=== PATIENT | male | born 1945 | race Caucasian/White ===

== ENCOUNTER 2017-07-27 21:16 | Emergency (ER) | payer MEDICARE ==
[~2017-07-27] VITALS: Ht 175.3 cm; Wt 81.0 kg
[2017-07-27 21:25] VITALS: BP 123/62; PULSE 68; RESP 16; TEMP 97.9
[2017-07-27] MEDS ORDERED: ROSU5 PO (21:31)
[2017-07-27] MEDS ORDERED: ASPI-516 CHEW (21:31)
--- NOTE | 2017-07-27 21:58 | PD ---
HPI Chief Complaint: Syncope/Near-Syncope Time Seen by Provider: 21:39 Travel History International Travel<30 days: No Contact w/Intl Traveler<30days: No Traveled to known affect area: No History of Present Illness HPI 71yo M with PMH of CAD s/p bypass presents to the ED with c/o possible syncope. Pt was at dinner and had total of 4 cocktails and normally do not drink. Said he felt lightheaded and his said he passed out for a second. He said he was sitting in a chair and woke up still sitting in a chair and did not fall. Pt is AAOx3 and denies any complaints. Denies any dizziness, chest pain , sob, n/v, abdominal pain, focal weakness or numbness, headache, visual changes. PFSH Past Medical History Cardiovascular Problems: Yes (bypass 27 years ago) Coronary Artery Disease: Yes Diminished Hearing: No Tetanus Vaccination: Never Vaccinated Influenza Vaccination: No Past Surgical History Coronary Artery Bypass Graft: Yes (27 years ago) Social History Alcohol Use: Yes (had 4 rum drinks for dinner) Tobacco Use: No Substance Use: No Allergies-Medications (Allergen,Severity, Reaction): Coded Allergies: No Known Allergies (Unverified , 07/27/17) Reported Meds & Prescriptions Reported Meds & Active Scripts Active Reported Aspirin 81 Mg Chew 81 Mg CHEW DAILY Crestor (Rosuvastatin Calcium) 5 Mg Tab 5 Mg PO DAILY Review of Systems Except as stated in HPI: all other systems reviewed are Neg Physical Exam Narrative GENERAL: 71yo M not in distress. SKIN: Focused skin assessment warm/dry. HEAD: Atraumatic. Normocephalic. EYES: Pupils equal and round at 3mm bilaterally. EOMI. ENT: No nasal bleeding or discharge. Mucous membranes pink and moist. NECK: Trachea midline. No JVD. CARDIOVASCULAR: Regular rate and rhythm. No murmur appreciated. RESPIRATORY: No accessory muscle use. Clear to auscultation. Breath sounds equal bilaterally. GASTROINTESTINAL: Abdomen soft, non-tender, nondistended. No rebound tenderness or guarding. MUSCULOSKELETAL: No obvious deformities. No clubbing. No cyanosis. No edema. NEUROLOGICAL: Awake and alert. No obvious cranial nerve deficits. Motor grossly within normal limits. Normal speech. PSYCHIATRIC: Appropriate mood and affect; insight and judgment normal. Data Data Last Documented VS Vital Signs Date Time Temp Pulse Resp B/P (MAP) Pulse Ox O2 Delivery O2 Flow Rate FiO2 07/28/17 00:29 07/27/17 22:03 79 14 84 92 07/27/17 21:25 97.9 Orders Orders Complete Blood Count With Diff (07/27/17 21:46) Comprehensive Metabolic Panel (07/27/17 21:46) Magnesium (Mg) (07/27/17 21:46) Troponin I (07/27/17 21:46) Act Partial Throm Time (Ptt) (07/27/17 21:46) Prothrombin Time / Inr (Pt) (07/27/17 21:46) Blood Glucose (07/27/17 21:46) Orthostatic Vital Signs (07/27/17 21:46) Chest, Single Ap (07/27/17 ) Urinalysis - C+S If Indicated (07/27/17 21:59) Ct Brain W/O Iv Contrast(Rout) (07/27/17 ) Ed Discharge Order (07/28/17 00:26) Electrocardiogram (07/28/17 21:29) Labs Laboratory Tests Test 07/27/17 21:50 07/27/17 22:20 White Blood Count 8.5 TH/MM3 Red Blood Count 5.28 MIL/MM3 Hemoglobin 16.5 GM/DL Hematocrit 49.2 % Mean Corpuscular Volume 93.2 FL Mean Corpuscular Hemoglobin 31.2 PG Mean Corpuscular Hemoglobin Concent 33.5 % Red Cell Distribution Width 14.0 % Platelet Count 188 TH/MM3 Mean Platelet Volume 9.1 FL Neutrophils (%) (Auto) 58.1 % Lymphocytes (%) (Auto) 33.7 % Monocytes (%) (Auto) 6.0 % Eosinophils (%) (Auto) 1.6 % Basophils (%) (Auto) 0.6 % Neutrophils # (Auto) 4.9 TH/MM3 Lymphocytes # (Auto) 2.9 TH/MM3 Monocytes # (Auto) 0.5 TH/MM3 Eosinophils # (Auto) 0.1 TH/MM3 Basophils # (Auto) 0.1 TH/MM3 CBC Comment DIFF FINAL Differential Comment Prothrombin Time 11.6 SEC Prothromb Time International Ratio 1.0 RATIO Activated Partial Thromboplast Time 25.7 SEC Blood Urea Nitrogen 20 MG/DL Creatinine 0.98 MG/DL Random Glucose 78 MG/DL Total Protein 6.3 GM/DL Albumin 3.1 GM/DL Calcium Level 7.7 MG/DL Magnesium Level 2.0 MG/DL Alkaline Phosphatase 57 U/L Aspartate Amino Transf (AST/SGOT) 18 U/L Alanine Aminotransferase (ALT/SGPT) 13 U/L Total Bilirubin 0.3 MG/DL Sodium Level 144 MEQ/L Potassium Level 3.5 MEQ/L Chloride Level 111 MEQ/L Carbon Dioxide Level 21.6 MEQ/L Anion Gap 11 MEQ/L Estimat Glomerular Filtration Rate 75 ML/MIN Troponin I LESS THAN 0.02 NG/ML Urine Color YELLOW Urine Turbidity CLEAR Urine pH 5.5 Urine Specific [place] 1.017 Urine Protein TRACE mg/dL Urine Glucose (UA) NEG mg/dL Urine Ketones NEG mg/dL Urine Occult Blood NEG Urine Nitrite NEG Urine Bilirubin NEG Urine Urobilinogen LESS THAN 2.0 MG/DL Urine Leukocyte Esterase NEG Urine RBC 2 /hpf Urine WBC 1 /hpf Urine Squamous Epithelial Cells <1 /hpf Urine Mucus FEW /lpf Microscopic Urinalysis Comment CULT NOT INDICATED MDM Medical Decision Making Medical Screen Exam Complete: Yes Emergency Medical Condition: Yes Interpretation(s) EKG: NSR 67bpm. +PVC. Q wave III. Differential Diagnosis Vasovagal syncope vs. alcohol intoxication vs. dehydration vs. hypoglycemia vs. arrhythmia Narrative Course 71yo M with syncopal episode while at dinner today. His came later and I got a different history. Said her was staring in space and had his head lean back and was kind of foaming in the mouth for a few minutes. Sounds a bit like seizure so CT brain ordered. No history of seizure. Labs reviewed, no leukocytosis. H/H normal. Troponin negative. UA negative. CXR negative. CT brain negative. I advised admission for work up of possible new onset seizure as well as syncope work up with his cardiac history but pt is refusing. Pt is AAOx3 and not intoxicated and able to make decision to refuse admission. Pt given time to discuss with and still refuses. States he feels fine and wants to follow up as outpatient. Return precautions given. Diagnosis Primary Impression: Syncope Qualified Codes: R55 - Syncope and collapse Referrals: Sylvie Aguilar MD call for appointment Possible seizure. Patient Instructions: General Instructions Departure Forms: Tests/Procedures Additional Instructions: Please follow up with your anchorer as an outpatient. Please follow up neurology clinic for work up of possible seizure. Return to the ED if symptoms worsen. Med/Other Pt SpecificInfo: No Change to Meds Disposition: 01 DISCHARGE HOME Condition: Stable Gabby Hinton DO Jul 27, 2017 21:58
[2017-07-27 22:03] VITALS: BP_SYST 102; BP_SYST 106; BP_SYST 175; BP_DIAS 58; BP_DIAS 70; BP_DIAS 79; RESP 14
--- NOTE | 2017-07-27 22:16 | RADRPT ---
EXAM DATE/TIME: 07/27/2017 22:01 [facility] COMPARISON: No previous studies available for comparison. INDICATIONS : Syncopal episode. MEDICAL HISTORY : Coronary artery disease. SURGICAL HISTORY : CABG. ENCOUNTER: Initial ACUITY: 1 day PAIN SCORE: 0/10 LOCATION: Bilateral chest FINDINGS: Cardiomegaly. Aortic calcification. Sternotomy wires. Clear lungs. CONCLUSION: No acute disease. Tra Saucedo MD on July 27, 2017 at 22:14 Board Certified Radiologist. This report was verified electronically.
[2017-07-27 22:32] LABS: AUTOMATED NEUTROPHIL # 4.9 TH/MM3 (1.8-7.7); BASOPHIL # 0.1 TH/MM3 (0-0.2); BASOPHIL % 0.6 % (0.0-2.0); EOSINOPHIL # 0.1 TH/MM3 (0-0.4); EOSINOPHIL % 1.6 % (0.0-4.0); HEMATOCRIT 49.2 % (39.0-51.0); HEMO FLAGS DIFF FINAL; LYMPH % 33.7 % (9.0-44.0); LYMPHOCYTE # 2.9 TH/MM3 (1.0-4.8); MEAN CELL VOLUME 93.2 FL (80.0-100.0); MEAN CORPUSCULAR HEMOGLOBIN 31.2 PG (27.0-34.0); MEAN CORPUSCULAR HGB CONC 33.5 % (32.0-36.0); NEUT % 58.1 % (16.0-70.0); PLATELET COUNT 188 TH/MM3 (150-450); RED BLOOD COUNT 5.28 MIL/MM3 (4.50-5.90); WHITE BLOOD COUNT 8.5 TH/MM3 (4.0-11.0)
[2017-07-27 22:47] LABS: ANION GAP 11 MEQ/L (5-15); AST (GOT) 18 U/L (15-37); BICARBONATE 21.6 MEQ/L (21.0-32.0); BLOOD UREA NITROGEN 20 MG/DL (7-18); CHLORIDE 111 MEQ/L (98-107); GLOMERULAR FILTRATION RATE 75 ML/MIN (>89); POTASSIUM 3.5 MEQ/L (3.5-5.1); SODIUM (NA) 144 MEQ/L (136-145)
--- NOTE | 2017-07-27 22:49 | RADRPT ---
EXAM DATE/TIME: 07/27/2017 22:32 [facility] COMPARISON: No previous studies available for comparison. INDICATIONS : Possible seizure. Syncopal episode. RADIATION DOSE: 56.35 CTDIvol (mGy) MEDICAL HISTORY : Cardiovascular disease. SURGICAL HISTORY : CABG ENCOUNTER: Initial ACUITY: 1 day PAIN SCALE: 3/10 LOCATION: cranial TECHNIQUE: Multiple contiguous axial images were obtained of the head. Using automated exposure control and adj ustment of the mA and/or kV according to patient size, radiation dose was kept as low as reasonably a chievable to obtain optimal diagnostic quality images. DICOM format image data is available electro nically for review and comparison. FINDINGS: CEREBRUM: The ventricles are normal for age. No evidence of midline shift, mass lesion, hemorrhage or acute in farction. No extra-axial fluid collections are seen. POSTERIOR FOSSA: The cerebellum and brainstem are intact. The 4th ventricle is midline. The cerebellopontine angle i s unremarkable. EXTRACRANIAL: The visualized portion of the orbits is intact. SKULL: The calvaria is intact. No evidence of skull fracture. CONCLUSION: No acute disease. Tra Saucedo MD on July 27, 2017 at 22:47 Board Certified Radiologist. This report was verified electronically.
[2017-07-27 22:51] LABS: APTT (PATIENT) 25.7 SEC (24.3-30.1); PROTHROMBIN TIME - PATIENT 11.6 SEC (9.8-11.6)
[2017-07-27 23:00] LABS: ALKALINE PHOSPHATASE 57 U/L (45-117); ALT (GPT) 13 U/L (12-78); TOTAL BILIRUBIN ADULT 0.3 MG/DL (0.2-1.0)
[2017-07-27 23:01] LABS: BLOOD, URINE NEG (NEG); COMMENT (UR) CULT NOT INDICATED; CULTURE IF INDICATED CULT NOT INDICATED; GLUCOSE,URINE NEG (NEG); KETONE, URINE NEG (NEG); MUCUS URINE FEW /lpf (OCC); NITRITE,URINE NEG (NEG); PH, URINE 5.5 (5.0-8.5); SQUAMOUS EPITHELIAL CELL URINE <1 /hpf (0-5); URINE COLOR YELLOW (YELLW/STRAW)
--- NOTE | 2017-07-28 12:15 | EKG ---
Date Performed: 07/27/2017 Time Performed: 21:29:32 PTAGE: 71 years EKG: Sinus rhythm WITH OCCASIONAL VENTRICULAR PREMATURE COMPLEXES POSSIBLE RIGHT VENTRICULAR CONDUCTION DELAY POSSIBLE INFERIOR MYOCARDIAL INFARCTION ABNORMAL ECG NO PREVIOUS TRACING Consider inferior myocardial infarction - age indeterminate DOCTOR: Mark De Jesus Interpretating Date/Time 07/28/2017 12:14:44
== END 2017-07-28 00:47 | disposition home or self-care (01) ==
LOC: NEPE 21:16
DX: R55 Syncope and collapse (principal); I25.10 Atherosclerotic heart disease of native coronary artery without angina pectoris; Z95.1 Presence of aortocoronary bypass graft; R94.31 Abnormal electrocardiogram [ECG] [EKG]; Z79.82 Long term (current) use of aspirin
CPT/HCPCS: 70450; 71010; 80053; 81001; 83735; 84484; 85025; 85610; 85730; 93005; 99285